=== PATIENT | female | born 1985 | race Caucasian/White ===

== ENCOUNTER 2018-10-04 07:49 | Day surgery (SDC) | payer BC ==
[2018-10-04 08:29] VITALS: BMI 45.1
[2018-10-04] MEDS ORDERED: Promethazine HCl 25 MG/ML VIAL IM PRN (08:30)
[2018-10-04] MEDS ORDERED: Ondansetron PF 4 MG/2 ML Vial IVP PRN (08:30)
[2018-10-04] MEDS ORDERED: Terbutaline Sulfate 1 MG/ML VIAL SC SCH (08:30)
[2018-10-04 08:52] LABS: Mean Corpuscular HGB CONC 32.8 g/dL (32.0-36.0); Mean Corpuscular Hemoglobin 26.4 pg (27.0-31.0); Mean Corpuscular Volume 80.5 fL (78.0-98.0); Mean Platelet Volume 7.7 fL (7.4-10.4); Platelet Count 315 thou/uL (130-400); RBC Distribution Width 13.4 % (11.5-14.5); Red Blood Cell (RBC) Count 4.17 mill/uL (4.20-5.40); White Blood Cell (WBC) Count 10.8 thou/uL (4.8-10.8)
[2018-10-04] MEDS ORDERED: Mineral Oil PER 1 ML TOP SCH (09:45)
--- NOTE | 2018-10-04 12:39 | PDOC.LDPN ---
Labor & Delivery Progress Note - Subjective Subjective: comfortable -: sono confirms cephalic presentation. pt dc home. fu in 3 days in office
--- NOTE | 2018-10-04 13:48 | HP ---
REASON FOR ADMISSION: A 37 weeks gestation, presentation for external cephalic version. HISTORY OF PRESENT ILLNESS: Ms. Rodriguez is a 33-year-old, 3, para 1, AB 1, with an EDC of 10/22 who is at 37 weeks. She has a previous section for failed induction and desires a TOLAC. 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 in 2011, blood type B positive, antibody negative, Pap negative, rubella immune, VDRL nonreactive, hepatitis B, GC, chlamydia negative, 50-gram within normal limits. Normal nuchal translucency. Normal sequential screen. Group B strep pending. MEDICAL HISTORY: None. SURGICAL HISTORY: None. ALLERGIES: DENIES. MEDICATIONS: vitamins. SOCIAL HISTORY: Denies tobacco, alcohol, or drug use. FAMILY HISTORY: Noncontributory. REVIEW OF SYSTEMS: Noncontributory. PHYSICAL EXAMINATION: GENERAL: White female, in no acute distress. VITAL SIGNS: Approximately 250 pounds, blood pressure 136/82. HEENT: Within normal limits. LUNGS: Clear to auscultation bilaterally. HEART: Regular rate and rhythm. BREASTS: No masses bilaterally. ABDOMEN: Soft, nontender. : Fundal height 37 cm. FHT is 130s. Vulva without lesions. Vagina without discharge. Cervix, closed, long, and high. EXTREMITIES: No clubbing, cyanosis, or edema. IMAGING STUDIES: Ultrasound in the office last week revealed a back-down transverse lie with the head in the maternal left and in the maternal right with a posterior placenta and adequate fluid. IMPRESSION: Breech presentation, desiring external cephalic version for trial of labor after . PLAN: Confirmation of position. Terbutaline and attempted external cephalic version with monitoring. Job ID: [id number]
== END 2018-10-04 12:52 | disposition home or self-care (01) ==
LOC: L&D/OP 07:49
PROVIDERS: ATTEND Obstetrics & Gynecology
DX: O32.1XX0 Maternal care for breech presentation, not applicable or unspecified (principal); Z3A.37 37 weeks gestation of pregnancy
CPT/HCPCS: 36415; 76815; 85027; 86850; 86900; 86901; 96360; 96361; 99283; J3105

== ENCOUNTER 2018-10-13 10:01 | Inpatient (IN) | payer BC ==
[2018-10-13] MEDS ORDERED: Lactated Ringer's 1,000 ML IV SCH ×2 (10:44→14:42)
[2018-10-13] MEDS ORDERED: Ondansetron PF 4 MG/2 ML Vial IVP PRN ×3 (10:44→14:42)
[2018-10-13] MEDS ORDERED: Promethazine HCl 25 MG/ML VIAL IM PRN ×3 (10:44→14:42)
[2018-10-13] MEDS ORDERED: CEFAZOLIN/Water 2 GM/20 ML SYRINGE SLOW IVP SCH (10:44)
[2018-10-13] MEDS ORDERED: Bicitra 30 ML UDCUP PO SCH (10:44)
[2018-10-13 10:55] VITALS: BMI 26.2
[2018-10-13] MEDS ORDERED: Morphine PF 1 MG/ML SYR ONE (10:59)
[2018-10-13] MEDS ORDERED: Bupivacaine 0.75% W/DEXTROSE 8.25% 2 ML AMP ONE (11:00)
[2018-10-13] MEDS ORDERED: Ondansetron PF 4 MG/2 ML Vial ONE (11:00)
[2018-10-13] MEDS ORDERED: PHENYLEPHRINE-NS 100 MCG/ML 10 ML SYRINGE ONE (11:00)
[2018-10-13] MEDS ORDERED: Ketorolac Tromethamine 30 MG/ML VIAL ONE (11:00)
[2018-10-13] MEDS ORDERED: Oxytocin 10 UNITS/ML VIAL ONE (11:00)
[2018-10-13] MEDS ORDERED: ePHEDrine/0.9% NaCl/PF SYRINGE 50 mg/10 ml ONE (11:00)
[2018-10-13] MEDS ORDERED: Lidocaine 1% PF 5 ML VIAL ONE (11:00)
[2018-10-13] MEDS: Lactated Ringer's 1,000 ML IV SCH (11:05)
[2018-10-13 11:07] LABS: Hemoglobin 10.8 g/dL (12.0-16.0); Mean Corpuscular HGB CONC 32.7 g/dL (32.0-36.0); Mean Corpuscular Hemoglobin 26.5 pg (27.0-31.0); Mean Corpuscular Volume 81.1 fL (78.0-98.0); Mean Platelet Volume 7.8 fL (7.4-10.4); Platelet Count 304 thou/uL (130-400); RBC Distribution Width 13.8 % (11.5-14.5); Red Blood Cell (RBC) Count 4.08 mill/uL (4.20-5.40); White Blood Cell (WBC) Count 11.8 thou/uL (4.8-10.8)
[2018-10-13] MEDS ORDERED: NS / Oxytocin 40 units/1000ml 1,000 ML ONE (11:11)
[2018-10-13] MEDS ORDERED: CEFAZOLIN 2 GM/50 ML-DEXTROSE 2 GM in Premix Bag 1 BAG IVPB SCH (11:15)
[2018-10-13 11:48] LABS: HBSAg Index 0.23 S/CO (0-0.99); Hep B Surf Ag Non-Reactive S/CO (NonReactive); Syphilis Antibody Nonreactive (Nonreactive); Syphilis Antibody Index 0.03 S/CO (<1.00 Non-Reactive)
[2018-10-13] MEDS ORDERED: diphenhydrAMINE 50 MG/ML VIAL ONE (12:08)
[2018-10-13] MEDS ORDERED: Ketorolac Tromethamine 30 MG/ML VIAL IVP PRN ×2 (12:10→19:46)
[2018-10-13] MEDS ORDERED: Eucerin (Mineral Oil/Petrolatum,White) 30 gm Jar TOP PRN (12:10)
[2018-10-13] MEDS ORDERED: HYDROmorphone 2 MG/ML VIAL SLOW IVP PRN (12:10)
[2018-10-13] MEDS ORDERED: Naloxone HCl 0.4 mg/ml Vial IV PRN (12:10)
[2018-10-13] MEDS ORDERED: diphenhydrAMINE 50 MG/ML VIAL IVP PRN (12:10)
[2018-10-13] MEDS ORDERED: L&D-Morphine 4 MG/ML VIAL SLOW IVP PRN (12:10)
[2018-10-13] MEDS ORDERED: Naloxone HCl 0.4 mg/ml Vial IVP PRN ×2 (12:10)
[2018-10-13] MEDS ORDERED: Ondansetron HCl/PF 4 MG/2 ML Vial IVP PRN (12:10)
[2018-10-13] MEDS ORDERED: Meperidine HCl/PF 25 MG/ML VIAL SLOW IVP PRN (12:10)
[2018-10-13] MEDS ORDERED: Promethazine HCl 25 MG SUPP PR PRN (12:10)
[2018-10-13] MEDS ORDERED: Ketorolac Tromethamine 30 MG/ML VIAL IVP SCH (12:15)
[2018-10-13] MEDS ORDERED: Communication Order-Pharmacy FS SCH (12:15)
[2018-10-13] MEDS ORDERED: Ibuprofen 800 MG TAB PO SCH (14:42)
[2018-10-13] MEDS ORDERED: diphenhydrAMINE 25 MG CAP PO PRN (14:42)
[2018-10-13] MEDS ORDERED: Lanolin Ointment 7 GM TUBE TOP PRN (14:42)
[2018-10-13] MEDS ORDERED: Acetaminophen 325 MG TAB PO PRN (14:42)
[2018-10-13] MEDS ORDERED: Adacel (T-DAP) 0.5 ML SYRINGE IM ONE (14:42)
[2018-10-13] MEDS ORDERED: NS / Oxytocin 40 units/1000ml 1,000 ML IV SCH (14:42)
--- NOTE | 2018-10-13 18:26 | OP ---
DATE OF PROCEDURE: 10/13/2018 PREOPERATIVE DIAGNOSES: Prior section x1 at 38-1/2 weeks' gestation with gestational hypertension, unstable lie. POSTOPERATIVE DIAGNOSES: Prior section x1 at 38-1/2 weeks' gestation with gestational hypertension, unstable lie plus wellington breech presentation. PROCEDURE PERFORMED: Repeat low-transverse section without extension. TRUCK CAR AND BUS CLEANER: Ralph Scott MD for [facility] obstetric hospitalists. ANESTHESIA: Subarachnoid block by Shyanne Shook CRNA. ESTIMATED BLOOD LOSS: Less than 1000 mL. QBL: Pending. MEDICATIONS: 2 g Ancef. PREINCISION: DVT prophylaxis with SCDs. OPERATIVE FINDINGS: 1. Vigorous female infant, wellington breech presentation, clear fluid. Apgars and weight pending to nursery. 2. Normal-appearing uterus, tubes, and ovaries bilaterally. 3. Hemostasis, clear urine. COUNTS: Correct at the end of the procedure. DISPOSITION: Recovery room in good condition. DESCRIPTION OF PROCEDURE: After obtaining appropriate operative consent, the patient was taken to the operating room, where subarachnoid block achieved without difficulty. The patient was prepped and draped in usual manner. Previous Pfannenstiel incision was incised sharply, carried down to the fascia in the midline, extended superiorly and laterally with curved Cook scissors. Rectus was dissected off the fascia superiorly and inferiorly. Rectus was divided in the midline, and peritoneum was entered bluntly. Extensive adhesions of the uterus to the anterior abdominal wall at the level of the rectus were noted. These were taken down in both blunt and sharp dissection. The Madhu O retractor was placed inside the vesicouterine peritoneum, incised sharply, and dissected off the lower uterine segment. Hysterotomy was made approximately 1 cm above this level and extended superiorly and laterally with finger fractionization. The 's breech was noted to be the presenting part and was elevated with hysterotomy. The rest of the infant was delivered in the usual manner, maintaining flexion of the head. Cord was clamped and cut, and handed off to the team in attendance. Usual cord blood sample was obtained. Placenta was removed manually. Uterus was left inside. Hysterotomy was noted to be without extension and closed using a running locking #1 Monocryl suture in a single layer. Good hemostasis was noted after closure. Area approximately 5 to 6 square centimeter of deserosalized uterus where it had been adhered to the anterior abdominal wall, was noted 2 cm above the level of the hysterotomy. Because of its thin vascular nature, decision was made to treat with FloSeal. FloSeal was applied and held pressure with a moist sponge for 3 minutes. Good hemostasis was noted after this was done. The Madhu O retractor was removed. Gutters were irrigated out bilaterally, and reinspection hysterotomy revealed it to be dry. Rectus was reapproximated using 0 Monocryl suture. Subcutaneous tissue was irrigated and rendered hemostatic with Bovie cautery. Fascia was reapproximated using running continuous 0 PDS suture x2. Subcutaneous tissue was irrigated using a 2-0 plain gut. Skin was reapproximated using a 4-0 Monocryl and Dermabond. The patient was taken to recovery room in good condition. MILO pending. Job ID: [id number]
[2018-10-13] MEDS: Docusate Calcium (SURFAK) 240 MG CAP PO SCH (23:52)
[2018-10-14] MEDS ORDERED: Meperidine HCl/PF 25 MG/ML VIAL IM PRN (00:15)
[2018-10-14] MEDS ORDERED: Zolpidem Tartrate 5 MG TAB PO PRN (00:15)
[2018-10-14] MEDS: Lactated Ringer's 1,000 ML IV SCH ×4 (02:30→18:18)
[2018-10-14 06:28] LABS: Hemoglobin 8.7 g/dL (12.0-16.0); Mean Corpuscular HGB CONC 32.5 g/dL (32.0-36.0); Mean Corpuscular Hemoglobin 26.5 pg (27.0-31.0); Mean Corpuscular Volume 81.6 fL (78.0-98.0); Mean Platelet Volume 7.7 fL (7.4-10.4); Platelet Count 243 thou/uL (130-400); RBC Distribution Width 13.7 % (11.5-14.5); Red Blood Cell (RBC) Count 3.29 mill/uL (4.20-5.40); White Blood Cell (WBC) Count 12.9 thou/uL (4.8-10.8)
--- NOTE | 2018-10-14 08:38 | PDOC.PP ---
Post Progress Note Post Day #: 1 PO intake tolerated: yes Flatus: yes Ambulation: yes Vital Signs (12 hours) Temp Pulse Resp BP Pulse Ox 10/14/18 08:18 98.0 F 113 H 20 129/80 95 10/14/18 04:45 98.2 F 107 H 20 120/77 10/14/18 00:05 97.7 F 104 H 18 127/76 10/13/18 22:15 20 Weight Weight 153 lb - Physical Examination General: NAD ( pulse at rest 90) Cardiovascular: no m/r/g, RRR Respiratory: clear to auscultation bilaterally, non-labored breathing Abdominal: + bowel sounds, lochia, no distention, appropriately TTP Skin: CS incision dry & intact, no rash Neurological: no gross focal deficits Psychiatric: normal affect Result Diagrams: 10/14/18 06:15 Additional Labs: Post Labs Blood Type B POSITIVE 10/13/18 10:55 Hep Bs Antigen Non-Reactive S/CO (NonReactive) 10/13/18 10:55 (1) Breech presentation at Code(s): O32.1XX0 - MATERNAL CARE FOR BREECH PRESENTATION, UNSP Status: Acute - Assessment/Plan benign exam. qbl ~850. routine care. rx sent electronically from [facility]. check out care to ob hospitalist for remainder of admission.
[2018-10-14] MEDS: Prenatal Vitamin 1 TAB PO SCH (09:29)
[2018-10-14] MEDS: HYDROcodone/Acetaminophen 5/325 mg Tablet PO PRN ×2 (09:29→21:10)
[2018-10-14] MEDS: Famotidine 20 MG TAB PO SCH ×2 (09:30→21:09)
[2018-10-14] MEDS: Simethicone Chewable 80 MG TAB PO PRN (09:30)
[2018-10-14] MEDS: Docusate Calcium (SURFAK) 240 MG CAP PO SCH ×2 (09:30→21:09)
[2018-10-14] MEDS: Ibuprofen 800 MG TAB PO SCH ×2 (14:28→21:09)
[2018-10-15] MEDS: Ibuprofen 800 MG TAB PO SCH ×3 (05:21→21:12)
[2018-10-15] MEDS: Lactated Ringer's 1,000 ML IV SCH ×2 (06:03→13:10)
--- NOTE | 2018-10-15 08:01 | PRG ---
DATE OF SERVICE: 10/15/2018 SUBJECTIVE: The patient is postop day 2, status post a repeat for breech and gestational hypertension. The patient reports today that she is tolerating p.o., voiding on her own, having decreased lochia, and good pain control. OBJECTIVE: VITAL SIGNS: Most recent vital signs; temperature 98.7, pulse of 105, respiratory rate of 20, and blood pressure of 120/64. GENERAL: She appears to be in no acute distress. She is alert and oriented, cooperative and pleasant to interact with. HEENT: Head is normocephalic, atraumatic. ABDOMEN: Fundus is firm. Incision is clean, dry, and intact with Dermabond. EXTREMITIES: Nontender, nonedematous. ASSESSMENT AND PLAN: The patient is postop day 2, status post a repeat section for breech presentation and gestational hypertension. The patient's blood pressures have remained in the normal range. We will anticipate discharge tomorrow as baby has elevated bilirubin and maybe under lytes today, and we will continue postoperative care of Ms. Jumana Rodriguez. Job ID: [id number]
[2018-10-15] MEDS: Simethicone Chewable 80 MG TAB PO PRN (08:19)
[2018-10-15] MEDS: Docusate Calcium (SURFAK) 240 MG CAP PO SCH ×2 (08:19→21:12)
[2018-10-15] MEDS: Prenatal Vitamin 1 TAB PO SCH (08:19)
[2018-10-15] MEDS: HYDROcodone/Acetaminophen 5/325 mg Tablet PO PRN ×4 (08:19→22:16)
[2018-10-15] MEDS: Famotidine 20 MG TAB PO SCH ×2 (08:19→21:12)
--- NOTE | 2018-10-15 21:31 | PDOC.PP ---
Post Progress Note Post Day #: 2 Subjective: Doing well PO intake tolerated: yes Flatus: yes Ambulation: yes Vital Signs (12 hours) Temp Pulse Resp BP BP Pulse Ox 10/15/18 20:30 98.1 F 110 H 20 130/80 97 10/15/18 11:48 98.0 F 110 H 20 132/83 Weight Weight 153 lb BPs reviewed for last 24 hrs and no temperature elevation - Physical Examination General: NAD Cardiovascular: no m/r/g Respiratory: clear to auscultation bilaterally Abdominal: + bowel sounds, appropriately TTP Extremities: negative homans (B) Skin: CS incision dry & intact (incision sutured), no rash Neurological: no gross focal deficits Psychiatric: A&Ox3, normal affect Result Diagrams: 10/14/18 06:15 Additional Labs: Post Labs Blood Type B POSITIVE 10/13/18 10:55 Hep Bs Antigen Non-Reactive S/CO (NonReactive) 10/13/18 10:55 (1) delivery delivered Code(s): O82 - ENCOUNTER FOR DELIVERY WITHOUT INDICATION Status: Acute (2) Breech presentation at Code(s): O32.1XX0 - MATERNAL CARE FOR BREECH PRESENTATION, UNSP Status: Acute - Assessment/Plan POD2 from repeat CS, breech and GHTN. Doing well. Anticpiate dc to home 10/16 which is POD3. Recommend BP check and wound check in 1-2 weeks at [facility]
[2018-10-16] MEDS: HYDROcodone/Acetaminophen 5/325 mg Tablet PO PRN ×3 (03:08→11:43)
[2018-10-16] MEDS: Lactated Ringer's 1,000 ML IV SCH ×2 (05:11→09:13)
--- NOTE | 2018-10-16 05:29 | PDOC.PP ---
Post Progress Note Post Day #: 3; Discharge Note Subjective: Doing well PO intake tolerated: yes Flatus: yes Ambulation: yes Vital Signs (12 hours) Temp Pulse Resp BP BP Pulse Ox 10/16/18 00:00 97.7 F 107 H 20 123/68 10/15/18 20:30 98.1 F 110 H 20 130/80 97 Weight Weight 153 lb - Physical Examination General: NAD Cardiovascular: no m/r/g Respiratory: clear to auscultation bilaterally Abdominal: + bowel sounds, lochia Extremities: negative homans (B) Skin: CS incision dry & intact (Sutured incision) Neurological: no gross focal deficits Psychiatric: A&Ox3, normal affect Result Diagrams: 10/14/18 06:15 Additional Labs: Post Labs Blood Type B POSITIVE 10/13/18 10:55 Hep Bs Antigen Non-Reactive S/CO (NonReactive) 10/13/18 10:55 (1) delivery delivered Code(s): O82 - ENCOUNTER FOR DELIVERY WITHOUT INDICATION Status: Acute (2) Breech presentation at Code(s): O32.1XX0 - MATERNAL CARE FOR BREECH PRESENTATION, UNSP Status: Acute - Assessment/Plan POD 3 from breech repeat CS...ok for discharge home today. Recomend BP check ( BPs normal now) in 1-2 weeks with wound check for HX GHTN. Final DX: Breech presentation Repeat section Gestational Hypertension
[2018-10-16] MEDS: Ibuprofen 800 MG TAB PO SCH (06:26)
[2018-10-16] MEDS: Prenatal Vitamin 1 TAB PO SCH (09:12)
[2018-10-16] MEDS: Famotidine 20 MG TAB PO SCH (09:12)
[2018-10-16] MEDS: Docusate Calcium (SURFAK) 240 MG CAP PO SCH (09:13)
[2018-10-16 09:36] VITALS: BP 131/65; TEMP 97.5
== END 2018-10-16 12:30 | disposition home or self-care (01) | DRG 788 ==
LOC: L&D 10:01 → 3SW 15:13
PROVIDERS: ADMIT Obstetrics & Gynecology; ATTEND Obstetrics & Gynecology
PROC: 10D00Z1 Extraction of Products of Conception, Low, Open Approach (ICD-10-PCS; principal; 2018-10-13)
DX: O34.211 Maternal care for low transverse scar from previous cesarean delivery (principal); Z3A.38 38 weeks gestation of pregnancy; Z37.0 Single live birth; O13.4 Gestational [pregnancy-induced] hypertension without significant proteinuria, complicating childbirth; O32.0XX0 Maternal care for unstable lie, not applicable or unspecified; O32.1XX0 Maternal care for breech presentation, not applicable or unspecified
CPT/HCPCS: 36415; 51702; 85027; 86780; 86850; 86900; 86901; 87340; 90715; J1200; J1885; J2001; J2274; J2405; J2590; J3490

== ENCOUNTER 2018-10-20 05:50 | Inpatient (IN) | payer BC ==
[2018-10-20 06:36] LABS: Hemoglobin 8.8 g/dL (12.0-16.0); Mean Corpuscular HGB CONC 30.8 g/dL (32.0-36.0); Mean Corpuscular Hemoglobin 24.8 pg (27.0-31.0); Mean Corpuscular Volume 80.6 fL (78.0-98.0); Mean Platelet Volume 5.8 fL (7.4-10.4); Platelet Count 359 thou/uL (130-400); RBC Distribution Width 13.4 % (11.5-14.5); Red Blood Cell (RBC) Count 3.56 mill/uL (4.20-5.40); White Blood Cell (WBC) Count 10.4 thou/uL (4.8-10.8)
[2018-10-20 06:38] LABS: AST (SGOT) 38 U/L (5-34); Chloride 106 mmol/L (98-107); Potassium 4.2 mmol/L (3.5-5.1); Protein, Total 6.7 g/dL (6.0-8.3); Sodium 139 mmol/L (136-145)
[2018-10-20 06:51] LABS: #Basophils 0.1 thou/uL (0.0-0.2); #Eosinphils 0.4 thou/uL (0.0-0.7); #Lymphocytes 1.4 thou/uL (1.20-3.40); #Monocytes 0.8 thou/uL (0.11-0.59); #Neutrophils 7.7 thou/uL (1.40-6.50); %Basophils 1.2 % (0.0-1.0); %Eosinophils 3.8 % (0.0-10.0); %Lymphocytes 13.4 % (21.0-51.0); %Monocytes 7.5 % (0.0-10.0); %Neutrophils 74.2 % (42.0-75.0); Hypochromia SLIGHT = 6-15 cells (100X) (0-5/hpf); MDiff Complete? YES
[2018-10-20 07:07] LABS: Bilirubin Negative (Negative); Blood, Urine Large (Negative); Clarity Slightly Cloudy (Clear); Glucose, Urine (Dipstick) Negative (Negative); Leukocyte Small (Negative); Nitrite Negative (Negative); Protein, Urine (Dipstick) Negative (Neg-Trace); Urobilinogen 0.2 mg/dL (0.2-1.0)
[2018-10-20 07:17] LABS: Bacteria/HPF Rare-Few HPF (None Seen); Hyaline Casts/LPF NONE SEEN LPF (0-3 Hyaline); Specific Gravity, Urine 1.013 (1.002-1.036); Squamous Epithelial 0-3 HPF (0-3); Transitional Epithelial 0-3 HPF (0-3); WBC/HPF 0-3 HPF (0-3)
[2018-10-20 07:19] LABS: ALT (SGPT) 57 U/L (8-55); Albumin 3.1 g/dL (3.5-5.0); Alkaline Phosphatase 87 U/L (40-150); BUN (Urea Nitrogen) 10 mg/dL (7.0-18.7); Bilirubin, Total 0.4 mg/dL (0.2-1.2); Calc. Creatinine Clearance 0 mL/min (70-130); Calcium 8.7 mg/dL (7.8-10.44); Carbon Dioxide 21 mmol/L (22-29); Estimated GFR-MDRD 90; Globulin 3.6 g/dL (2.4-3.5); Glucose 91 mg/dL (70-105); Lipase 33 U/L (8-78)
[2018-10-20 07:21] LABS: Anion Gap 16 mmol/L (10-20)
--- NOTE | 2018-10-20 08:13 | RAD ---
CHEST 2 VIEWS: Date: 10/20/18 HISTORY: Dyspnea. FINDINGS: No comparison. Cardiac silhouette is unremarkable. Shallow inspiration accentuates pulmonary markings. Mediastinum i s midline. Subtle patchy parenchymal opacities are present at each lung base. No evidence of pneumoth orax or pleural fluid. IMPRESSION: Mild patchy bilateral infiltrates at the lung bases. Clinical correlation regarding other signs and s ymptoms of bibasilar pneumonitis is required. CT arteriogram of the chest has been performed. Please see separate report. POS: [facility]
--- NOTE | 2018-10-20 08:58 | CT ---
PRELIMINARY REPORT/[facility]/EMERGENTY AFTER-HOURS PROCEDURE CT Angiography Chest With Contrast EXAM DATE/TIME: 10/20/2018 6:42 AM CLINICAL HISTORY: 33 years old, female; Signs and symptoms; Shortness of breath; Patient HX: PT had 12. PT woke w SOB at 2: 00 am TECHNIQUE: Axial computed tomographic angiography images of the chest with intravenous contrast using CT angiogr aphy protocol. All CT scans at this facility use at least one of these dose optimization techniques: automated exposure control; mA and/or kV adjustment per patient size (includes targeted exams where dose is mat ched to clinical indication); or iterative reconstruction. Coronal reformatted images were created an d reviewed. MIP reconstructed images were created and reviewed. CONTRAST: 100 ml of ISOVUE 379 administered intravenously. COMPARISON: No relevant prior studies available. FINDINGS: Pulmonary arteries: Bolus timing is insufficient for definitive exclusion of small peripheral pulmona ry emboli, however no obvious central filling defect is demonstrated. Aorta: The aorta is normal. There is no evidence of aortic dissection, leak, rupture, or other compli cations. Thyroid: The visualized thyroid gland is unremarkable. Lungs: There is subpleural atelectasis of the dependent portions of the lungs. There is mild opacific ation at the RIGHT lung base compatible with edema or pneumonia in the appropriate clinical setting. Pleural space: There are small bilateral pleural effusions. Heart: Normal. No cardiomegaly. No pericardial effusion. Mediastinum: The trachea is normal. Lymph nodes: Unremarkable. No enlarged lymph nodes. Bones/joints: Unremarkable. No acute fracture. Soft tissues: Unremarkable. IMPRESSION: 1. There are small bilateral pleural effusions. 2. There is mild opacification at the RIGHT lung base compatible with edema or pneumonia in the appro priate clinical setting. 3. There is no evidence of aortic dissection, leak, rupture, or other complications. Thank you for allowing us to participate in the care of your patient. Dictated and Authenticated by: Sam Laboy MD 10/20/2018 7:17 AM Central Time ([place] & [place]) CONTRAST ENHANCED CTA CHEST: HISTORY: Dyspnea. TECHNIQUE: A contrast enhanced CTA of the chest is performed, and 2D and 3D reconstructed images were performed on an independent 3D work station. FINDINGS: CTA chest demonstrates small bilateral pleural effusions. There are some areas of subtle air space opacity in the right lower lobe, compatible with some areas of right lower lobe pneumonia or edema. No evidence of filling defects seen in the pulmonary arteries to suggest pulmonary emboli. No other significant abnormalities seen. No evidence of aortic dissections or aneurysms seen. IMPRESSION: Small bilateral pleural effusions and possible right lower lobe pneumonia. POS: [facility]
[2018-10-20 09:31] VITALS: BMI 41.9
[2018-10-20 09:57] LABS: Troponin I 0.089 ng/mL (< 0.028)
[2018-10-20 12:02] LABS: Creatinine, Urine 33.36 mg/dL (47-110)
[2018-10-20] MEDS ORDERED: Enoxaparin Sodium 40 MG/0.4 ML SYRINGE SC SCH (12:30)
--- NOTE | 2018-10-20 12:32 | PDOC.FPRHP ---
- History of Present Illness Chief Complaint: SOB History of Present Illness: Mrs. Rodriguez is a 33 yo presenting with CC of SOB. POD #7 s/p RLTCS. Denies any complications. Reports yesterday she noticed rattling sound with breathing. Last night she was unable to lay down flat in bed d/t SOB. SOB w/ exertion and dry cough as well. Denies CP, fever, headache, abdominal pain, vision changes, swelling. Has been recovering well at home. Incision healing well. Breast feeding. - Allergies/Adverse Reactions Allergies Allergy/AdvReac Type Severity Reaction Status Date / Time No Known Allergies Allergy Verified 10/20/18 09:20 - Home Medications Medication Instructions Recorded Confirmed Type HYDROcodone Bit/APAP 5/325 [[place] 1 tab PO Q6HR PRN 10/20/18 10/20/18 History 5/325] Ibuprofen 800 mg PO TID PRN 10/20/18 10/20/18 History - History PMHx: none PSHx: 2 c-sections, ankle surgery FHx: mom-SLE, RA, degenerative arthritis. Father-thyroid problem Social: Lives with and two children. Denies tobacco, alcohol, drug use. - Review of Systems General: denies: fever/chills Eyes: denies: vision changes ENT: denies: nasal congestion Respiratory: reports: cough, shortness of breath (with exertion. orthopnea.) Cardiovascular: reports: orthopnea. denies: chest pain, palpitation, edema Gastrointestinal: denies: nausea, vomiting, diarrhea, constipation, abdominal pain Genitourinary: denies: dysuria Skin: denies: rashes Musculoskeletal: denies: pain, tenderness - Vital signs BP: 146/82 HR: 103 RR: 18 Tmax: 98.7 Pox: 94% on RA Wt: 110 kg - Physical Exam Constitutional: NAD, awake, alert and oriented Neck: no LAD Heart: RRR, normal S1/S2 Lungs: no respiratory distress, good air movement, other (mild crackles LLL base ) Abdomen: soft, bowel sounds present Neurological: no focal deficit Skin: no rash/lesions, good turgor, capillary refill <2 seconds FMR H&P: Results - Labs Result Diagrams: 10/20/18 06:15 10/20/18 06:15 Lab results: WBC 10.4 thou/uL (4.8-10.8) 10/20/18 06:15 Hgb 8.8 g/dL (12.0-16.0) L 10/20/18 06:15 Hct 28.7 % (36.0-47.0) L 10/20/18 06:15 MCV 80.6 fL (78.0-98.0) 10/20/18 06:15 Plt Count 359 thou/uL (130-400) 10/20/18 06:15 Neutrophils % 74.2 % (42.0-75.0) 10/20/18 06:15 Sodium 139 mmol/L (136-145) 10/20/18 06:15 Potassium 4.2 mmol/L (3.5-5.1) 10/20/18 06:15 Chloride 106 mmol/L (98-107) 10/20/18 06:15 Carbon Dioxide 21 mmol/L (22-29) L 10/20/18 06:15 BUN 10 mg/dL (7.0-18.7) 10/20/18 06:15 Creatinine 0.74 mg/dL (0.6-1.1) 10/20/18 06:15 Glucose 91 mg/dL (70-105) 10/20/18 06:15 Calcium 8.7 mg/dL (7.8-10.44) 10/20/18 06:15 Total Bilirubin 0.4 mg/dL (0.2-1.2) 10/20/18 06:15 AST 38 U/L (5-34) H 10/20/18 06:15 ALT 57 U/L (8-55) H 10/20/18 06:15 Alkaline Phosphatase 87 U/L (40-150) 10/20/18 06:15 CK-MB (CK-2) 1.0 ng/mL (0-6.6) 10/20/18 06:15 B-Natriuretic Peptide 419.0 pg/mL (0-100) H 10/20/18 06:15 Serum Total Protein 6.7 g/dL (6.0-8.3) 10/20/18 06:15 Albumin 3.1 g/dL (3.5-5.0) L 10/20/18 06:15 Lipase 33 U/L (8-78) 10/20/18 06:15 Urine Ketones Negative mg/dL (Negative) 10/20/18 06:54 Urine Blood Large (Negative) H 10/20/18 06:54 Urine Nitrite Negative (Negative) 10/20/18 06:54 Ur Leukocyte Esterase Small (Negative) H 10/20/18 06:54 Urine RBC 7-10 HPF (0-3) H 10/20/18 06:54 Urine WBC 0-3 HPF (0-3) 10/20/18 06:54 Ur Squamous Epith Cells 0-3 HPF (0-3) 10/20/18 06:54 Urine Bacteria Rare-Few HPF (None Seen) 10/20/18 06:54 FMR H&P: A/P - Problem List (1) Peripartum cardiomyopathy, Current Visit: Yes Status: Acute Code(s): O90.3 - PERIPARTUM CARDIOMYOPATHY (2) HTN (hypertension) Current Visit: Yes Status: Acute Code(s): I10 - ESSENTIAL (PRIMARY) HYPERTENSION (3) Proteinuria Current Visit: Yes Status: Acute Code(s): R80.9 - PROTEINURIA, UNSPECIFIED - Plan 33 yo POD #7 s/p RLTCS presenting with orthopnea. Possible PP cardiomyopathy - CXR showed patchy infiltrate @ lung bases - CTA showed small b/l pleural effusion. R lung base opacification - VSS, BNP 419, EKG sinus tachycardia - indeterminate troponins, continue to trend - pending echo - will trial one dose lasix 20mg IV, monitor I/Os - consult cardiology Workup for pre-E - concern for elevated BPs, 150s systolic noted in ED. Last check 140/80s, will continue to monitor - no headache, vision changes, abdominal pain, LFTs minimally elevated, Cr 0.74 , platelets normal - noted to have high BPs day before and of delivery. No other hx of HTN. - U prot/cr ratio 1 Diet: Regular Ppx: Lovenox Dispo: admit to telemetry FMR H&P: Upper Level - Pertinent history Pt is a 33 year old 1 week s/p repeat who presents with a one day history of orthopnea. She reports no complications with her or delivery. She does report elevated pressures at her last visit. She does report cough x 1 day. Denies fevers, chest pain, abdominal pain, vision changes, headache. Lochia minimal. Denies pain. ED course: She received 1 L NS in the ED. CXR shows mild patchy bilateral infiltrates at the lung bases. CTA was negative for PE, but showed small bilateral pleural effusions. - Pertinent findings Vitals: BP: 146/82 P: 103 SpO2: 94% on RA RR: 18 Physical Exam: General: alert and oriented, in no distress Heart: RRR, no MRG Lungs: clear to auscultation bilaterally, no crackles, wheezes, or rhonchi. No use of accessory muscles of respiration Abdomen: soft, non-tender; well-healing pfannenstiel incision Extremities: trace edema Neuro: CN II-XII intact grossly; no focal deficits; no clonus, Achilles reflexes wnl. Labs/Imaging BNP- 409 AST: 38 ALT: 57 Troponin: 0.07, 0.089 CXR/CTA - bibasilar infiltrates; negative for PE. EKG: sinus tachycardia Assessment and Plan 33 yo 1 week s/p repeat LTCS with one day history of orthopnea and direct admitted due to concern for peripartum cardiomyopathy. Peripartum cardiomyopathy rule out - pt is hemodynamically stable. - troponins indeterminately elevated. - no evidence of respiratory distress; supplemental oxygen available if needed. - - will consider trial of Lasix. - will obtain echocardiogram to determine EF% - cardiology has been consulted. pre-e rule out - pt is currently asymptomatic. - will continue to monitor BPs. - urine protein:cr pending. PPx: Lovenox - Plan Date/Time: 10/20/18 1232 IJumana, have evaluated this patient and agree with findings/plan as outlined by regulatory affairs intern resident. Pertinent changes/additions are listed here. Assessment and Plan 33 yo 1 week s/p repeat LTCS with one day history of orthopnea and direct admitted due to concern for peripartum cardiomyopathy. Peripartum cardiomyopathy rule out - pt is hemodynamically stable. - troponins indeterminately elevated. - no evidence of respiratory distress; supplemental oxygen available if needed. - will obtain echocardiogram to determine EF% - cardiology has been consulted. pre-e rule out - with multiple elevated BPs in the ED, we will need to rule out post-martum pre -eclampsia as a cause for her symptoms. - pt is currently asymptomatic. LFTs only minimally elevated. - will continue to monitor BPs. - urine protein:cr pending. Addendum - Attending - Attending Attestation Date/Time: 10/20/18 1248 I personally evaluated the patient and discussed the management with Dr. Mckeon. I agree with and repeated the History, Examination, Assessment and Plan documented above with any addition or exceptions noted below. Patient well appearing; no acute distress. No JVD. RRR, no murmur; S4. 1+ BLE edema. Neg CTA for PE although suboptimal contrast timing. Findings as above. Patient clinically with peripartum cardiomyopathy. TTE ordered and results pending. Cardiology has been consulted. I believe LFTs are 2/2 hepatic congestion as opposed to preeclampsia with severe features (no symptoms, no 2x ULN). Her BP are mild range, but her prot/creat is elevated. I discussed pulmonary edema as a possible qualifier for magnesium and we discuss with Ob hospitalist, Dr. Noble, who favored not starting magnesium. I agree, as I feel her clinical picture is much more consistent with PPCM and I feel the additional fluids associated with mag infusion could worse her volume status as opposed to improving it. Pending TTE results will likely start HF meds. I would go ahead and sodium and fluid restrict the patient. If severe symptoms or pressures will manage as appropriate. We notified Dr. Gomes of his patient and will keep him updated at his request. DVT ppx with lovenox.
[2018-10-20 12:45] LABS: Troponin I 0.083 ng/mL (< 0.028)
[2018-10-20] MEDS ORDERED: Furosemide 20 MG/2 ML VIAL SLOW IVP SCH (12:45)
[2018-10-20] MEDS ORDERED: HYDROcodone/Acetaminophen 5/325 mg Tablet PO PRN (15:13)
[2018-10-20] MEDS ORDERED: Iopamidol 370 76% 100 ML VIAL ONE (16:27)
[2018-10-20] MEDS ORDERED: Acetaminophen 325 MG TAB PO SCH (17:15)
[2018-10-20] MEDS ORDERED: Calcium Gluc 4.6 MEQ/10 ML (100 MG/ML) SLOW IVP PRN (19:29)
[2018-10-20] MEDS ORDERED: Magnesium Sulfate 20 gm/500 ml 20 GM/500 ML BAG IVPB SCH (19:30)
[2018-10-20] MEDS ORDERED: Magnesium Sulfate 20 GM/WATER 500 ML BAG IVPB SCH (19:30)
--- NOTE | 2018-10-20 19:35 | PDOC.EVN ---
Event Note - Event Note Event Note: 33 yr old now POD #7 s/p rLTCS with hx of gestational HTN being evaluated for concern of PP cardiomyopathy. Patient reports headache, left sided and pounding. Reports present since approx 1400, unresponsive to norco. She does note having a headache at home a few days prior that were not responsive to ibuprofen. Denies current abdominal pain or vision changes. BP: 153/101 Repeat BP 149/72 Gen: patient somewhat tearful after discussion of condition, alert and oriented Heart: slightly tachy, reg rhythm Lungs: CTAB, no crackles, wheezes, rhonchi 33 yr old pod #7 s/p rLTCS Post cardiomyopathy -EF 35% -await cardiology recs -will need to be started on HF meds prior to D/C Pre-eclampsia with severe features -originally signs/symptoms thought to be 2/2 cardiomyopathy, however given new onset headache not responsive to tylenol/opiate (now qualifying as severe feature), will opt to initiate magnesium -other associated signs/symptoms: elevated AST/ALT, elevated protein/creatinine ratio at 1, elevated BP (not quite severe range), pulmonary edema on CTA -monitor strict I/Os -given no severe range BP's, will hold on initiating BP meds (unless started by cardiology) -will opt to hold on B-breezy at this time -initiate mag checks -if headache not improved, may consider reglan/benadryl -given she will need cardiac monitoring and mag drip, will transfer to CCU (no drip in IMCU). Addendum - Attending - Attending Attestation Date/Time: 10/20/182038 I personally evaluated the patient and discussed the management with Dr. Fulton. I agree with the History, Examination, Assessment and Plan documented above with any addition or exceptions noted below.
[2018-10-20] MEDS ORDERED: Labetalol HCl 100 MG/20 ML VIAL SLOW IVP PRN (21:11)
--- NOTE | 2018-10-20 22:17 | CON ---
DATE OF CONSULTATION: 10/20/2018 HISTORY OF PRESENT ILLNESS: Jumana Rodriguez is a 33-year-old white female without previous cardiac or respiratory problems. She just underwent her second C- section on October 13. She states that afterward she did notice some pedal edema that seemed to resolve. She did well until yesterday when she began noticing some wheezing whenever she would walk around the house. Last night, she then had episodes of PND and orthopnea and had to sleep in a chair. She seemed to be short of breath today, went to the [place] [facility] and then was transferred here for further evaluation. She did receive what looks like a liter of fluid in the emergency room. Chest x-ray did show bilateral pleural effusions. She denies any chest discomfort. PAST MEDICAL HISTORY: She denies any history of hypertension, diabetes, or hypercholesterolemia. MEDICATIONS: 1. Ibuprofen 800 mg t.i.d. p.r.n. 2. Hydrocodone p.r.n. ALLERGIES: NONE. OPERATIONS: Two C-sections. SOCIAL HISTORY: She does not smoke. She rarely has a Molly. FAMILY HISTORY: Mother apparently had myocardial infarction. REVIEW OF SYSTEMS: A 10-point review of systems is otherwise unremarkable. PHYSICAL EXAMINATION: VITAL SIGNS: Blood pressure 151/103, pulse of 119. HEENT: PERRL. NECK: Supple. CHEST: Reveals decreased breath sounds at the bases. No wheezing. CARDIOVASCULAR: S1 and S2 normal without any S3, S4, or murmurs. ABDOMEN: Obese. Normal bowel sounds. No tenderness. EXTREMITIES: Revealed trace pretibial edema. NEUROLOGICAL: Grossly intact. SKIN: Warm and dry. LABORATORY DATA: EKG revealed sinus tachycardia with rate of 112 per minute, possible left atrial enlargement. Poor R-wave progression. Echocardiogram revealed mild left ventricular enlargement, moderate left ventricular dysfunction with ejection fraction of 30% to 35%, mild left atrial enlargement, moderate mitral regurgitation, and mild tricuspid regurgitation. Chest x-ray revealed mild patchy infiltrates at the lung bases. Chest CT angiogram revealed small bilateral pleural effusions, opacification of the right lung base consistent with edema or pneumonia. No evidence of aortic dissection. The test was poorly timed for definite exclusion of small peripheral pulmonary emboli, however, there was no central filling defect demonstrated. Hemoglobin 8.8, hematocrit 28.7, white count 10,400, platelets 359,000. D-dimer 5.23. Sodium 139, potassium 4.2, chloride 106, carbon dioxide 21, BUN 10, creatinine 0.74, AST 38, ALT 57, troponin I 0.089, BNP 419.0. IMPRESSION: 1. cardiomyopathy with ejection fraction of 30% to 35%. 2. Positive family history. 3. Elevated liver function test, probably due to hepatic congestion. PLAN: The patient will be diuresed. She will be started on carvedilol, probably will add an IVONNE inhibitor in 1 to 2 days. With her ejection fraction of 30% to 35%, consideration should be given to LifeVest at the time of discharge. The situation was discussed with the patient and her . Job ID: [id number] [facility]
--- NOTE | 2018-10-21 00:36 | PDOC.EVN ---
Event Note - Event Note Event Note: Mag check: Headache improving, Urine output 270ml and 325ml in the last 2 hours DTR 2/, BP 155/113 Continue 2g Mag/hr, continue monitoring for magnesium toxicity, start coreg, PRN labetalol for elevated BP
[2018-10-21] MEDS ORDERED: Carvedilol 3.125 MG TAB PO SCH (00:45)
[2018-10-21] MEDS: Benzonatate 100 MG CAP PO PRN ×2 (01:31→05:29)
--- NOTE | 2018-10-21 05:30 | PDOC.EVN ---
Event Note - Event Note Event Note: Mag check: Headache improving, cough improving after tessalon, Urine output adequate, 175 in last hour DTR 2/4 in all 4 extremities, BP 144/93, crackles in LLL, no respiratory distress Continue 2g Mag/hr, continue monitoring for magnesium toxicity, PRN labetalol for elevated BP
--- NOTE | 2018-10-21 05:50 | PDOC.FM ---
- Subjective Subjective: Patient reports she is feeling better compared to yesterday. Denies current headache, vision changes, abdominal pain, edema. No SOB at rest. Is on bedrest. Continues to have orthopnea. Is understanding of her condition and the plan. - Objective MAR Reviewed: Yes Vital Signs & Weight: Vital Signs (12 hours) Temp Pulse Resp BP BP Pulse Ox 10/21/18 04:00 98.8 F 10/21/18 00:04 117 H 155/113 H 10/21/18 00:00 98.6 F 97 10/20/18 21:00 97 10/20/18 20:03 110 H 18 142/86 H 10/20/18 19:29 98.5 F 105 H 18 171/84 H 97 Weight Weight 110.903 kg Most Recent Monitor Data Heart Rate from ECG 110 NIBP 132/91 NIBP BP-Mean 104 Respiration from ECG 27 SpO2 98 I&O: 10/19/18 10/20/18 10/21/18 06:59 06:59 06:59 Intake Total 1668 Output Total 3255 Balance -1587 Result Diagrams: 10/20/18 06:15 10/20/18 06:15 Phys Exam - Physical Examination Constitutional: NAD Respiratory: clear to auscultation bilateral Cardiovascular: RRR, no significant murmur Gastrointestinal: soft, non-tender, positive bowel sounds Musculoskeletal: no edema Neurological: non-focal Psychiatric: normal affect Skin: normal turgor, cap refill <2 seconds Dx/Plan (1) Peripartum cardiomyopathy, Code(s): 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 PP cardiomyopathy - CXR showed patchy infiltrate @ lung bases - CTA showed small b/l pleural effusion. R lung base opacification, no PE - Echo showed EF 30-35% - Diuresing well with IV lasix 20mg. I/O balance of -1800. Could consider decreasing today. - Cardiology consulted, appreciate recommendations. Coreg started with plan to start IVONNE in 1-2 days. Possible life vest at discharge. - not encouraged. - Will consult HF team today Pre-eclampsia with severe features - noted to have high BPs day before and of delivery. No other hx of HTN. - U prot/cr ratio 1. - Patient had onset of headache yesterday evening, was started on magnesium @ 2145. Continue q4h magnesium checks. Plan to continue mag for 24 hours then discontinue. - BPs have been stable 130s/90s this am. On BP meds as above. Diet: Regular Ppx: Lovenox Dispo: pending clinical improvement Addendum - Attending - Attending Attestation Date/Time: 10/21/18 1313 I personally evaluated the patient and discussed the management with Dr. Mckeon and team. I agree with and repeated the History, Examination, Assessment and Plan documented above with any addition or exceptions noted below. Unfortunately developed additional symptoms of preE with severe features last night. Her headache is now resolved, however, and she feels much better from a respiratory standpoint. Will continue seizure precautions, mag checks, and stricts I&O's. Likely 24h mag. Await med recs with cards. Likely will be unable to BF. Continue diuresis.
[2018-10-21] MEDS: Carvedilol 3.125 MG TAB PO SCH ×2 (08:31→17:28)
[2018-10-21] MEDS: Enoxaparin Sodium 40 MG/0.4 ML SYRINGE SC SCH (08:32)
[2018-10-21] MEDS ORDERED: Furosemide 20 MG/2 ML VIAL SLOW IVP SCH (09:00)
[2018-10-21] MEDS ORDERED: Potassium Chloride 20 MEQ TAB PO SCH (10:15)
[2018-10-21] MEDS: Sacubitril 24.5 MG/Valsartan 25.5 MG TABLET PO SCH ×2 (10:28→20:50)
[2018-10-21] MEDS: Acetaminophen 325 MG TAB PO PRN ×2 (11:47→20:50)
--- NOTE | 2018-10-21 11:52 | CON ---
DATE OF CONSULTATION: 10/21/2018 SERVICE: Pulmonary Medicine. REASON FOR CONSULTATION: ICU patient. HISTORY OF PRESENT ILLNESS: The patient is a 33-year-old white female with past medical history significant for recent section. Two days after, she had her baby, she started having increasing progressive shortness of breath. She had orthopnea. Ultimately, she presented to the emergency department. She was discovered to have a peripartum cardiomyopathy. She is currently in the ICU on a magnesium drip, getting frequent reflex checks. She indicates that her breathing has dramatically improved. She denies any current fevers, chills, nausea, vomiting, or chest discomfort. She did not have any fevers, cough, nausea, vomiting, diarrhea, or dysuria. PAST MEDICAL HISTORY: None. PAST SURGICAL HISTORY: 1. section x2. 2. Ankle surgery. FAMILY HISTORY: Noncontributory. SOCIAL HISTORY: She lives with her and 2 other children. Denies any alcohol, tobacco, or illicit drug use. She has no exposure to chemicals, dust, asbestos, or tuberculosis. ALLERGIES: NO KNOWN DRUG ALLERGIES. MEDICATIONS: List of her inpatient medications was reviewed. No specific updates were made at this time. REVIEW OF SYSTEMS: General, head, ears, eyes, nose, throat, cardiovascular, respiratory, GI, , musculoskeletal, neurologic, and skin are negative except as mentioned is the HPI. PHYSICAL EXAMINATION: VITAL SIGNS: Afebrile, pulse 102, blood pressure 133/92, respirations 30, and saturation 92% on 2 L nasal cannula. GENERAL: The patient is awake and alert, in no apparent distress. LUNGS: Decent air entry. Crackles are present dependently. There is no prolonged expiratory phase or wheezing appreciated. HEART: Tachycardiac. Regular. ABDOMEN: Soft, nontender, and nondistended. Bowel sounds are positive. MUSCULOSKELETAL: No cyanosis or clubbing. There is no pitting in the bilateral lower extremities. NEUROLOGIC: Grossly nonfocal. LABORATORY DATA: WBC 10.4, hemoglobin 8.8, platelets 359,000. D-dimer 5.23. Basic metabolic profile is otherwise unremarkable. AST and ALT are minimally elevated. Troponin is downtrending to 0.083. BNP 419. Procalcitonin is unremarkable. Urinalysis is negative. IMAGING STUDIES: CTA of the chest demonstrates no evidence of a pulmonary embolism. There are bilateral pleural effusions, and ground-glass infiltrates in the bibasilar regions, which are touch more prominent on the right. Pulmonary artery is small in caliber. Left atrium is dilated. The right atrium and right ventricle appear to have a normal appearance. There is no flattening of the septum. Echocardiogram demonstrates 30% to 35% ejection fraction. Moderate MR is noted. ASSESSMENT: 1. Acute systolic heart failure. 2. Peripartum cardiomyopathy. 3. Acute hypoxic respiratory failure, improving. 4. Bilateral pleural effusion secondary to volume overload state. DISCUSSION AND PLAN: We will continue to diurese the patient until she returns to euvolemia. She is on a magnesium drip and needs frequent monitoring of her reflexes. Once this drip is done, she can be transitioned out of the ICU to the telemetry unit. Pulmonary/Critical Care will continue to follow along in this location. We will wean oxygen away as tolerated. 70 minutes have been devoted to this patient in various activities. I personally reviewed all imaging studies and laboratory data noted within this document. For fifty percent of this time, I was interacting with the patient at the bedside or coordinating care with the care team. For the remainder of the time I was immediately available to the patient in the hospital unit. Job ID: [id number] [facility]
--- NOTE | 2018-10-21 13:43 | PDOC.EVN ---
Event Note - Event Note Event Note: Patient started to have a headache again, nurse recently gave tylenol and pt says it is starting to help. She notes headache is caused by coughing. No vision changes, abdominal pain. DTRs 2/. Mag check 6.8. Plan to d/c mag @ 2145. Cardiology spoke with pt today about not . Addendum - Attending - Attending Attestation Date/Time: 10/21/18 8631 I personally evaluated the patient and discussed the management with Dr. Wyatt. I agree with the History, Examination, Assessment and Plan documented above with any addition or exceptions noted below. Discussed patient with OB hospitalist on today, Dr. Scott. Will plan on decreasing mag to 1/hr and repeat check in 4 hours. D/c mag at 24h.
[2018-10-21] MEDS ORDERED: Magnesium Sulfate 20 gm/500 ml 20 GM/500 ML BAG IVPB SCH (16:08)
--- NOTE | 2018-10-21 18:31 | PDOC.EVN ---
Event Note - Event Note Event Note: Note from check @ 1700 Patient doing well. Denies headache, vision changes, abdominal pain. Sitting up in chair comfortably. DTR 2/4. Patient has no complaints or questions at this time.
[2018-10-22 06:10] LABS: #Eosinphils 0.3 thou/uL (0.0-0.7); #Lymphocytes 1.7 thou/uL (1.20-3.40); #Neutrophils 9.4 thou/uL (1.40-6.50); %Basophils 0.4 % (0.0-1.0); %Eosinophils 2.5 % (0.0-10.0); %Lymphocytes 13.5 % (21.0-51.0); %Monocytes 7.9 % (0.0-10.0); %Neutrophils 75.7 % (42.0-75.0); Hemoglobin 10.1 g/dL (12.0-16.0); Mean Corpuscular HGB CONC 31.6 g/dL (32.0-36.0); Mean Corpuscular Hemoglobin 25.5 pg (27.0-31.0); Mean Corpuscular Volume 80.8 fL (78.0-98.0); Mean Platelet Volume 5.9 fL (7.4-10.4); Platelet Count 512 thou/uL (130-400); RBC Distribution Width 13.9 % (11.5-14.5); Red Blood Cell (RBC) Count 3.96 mill/uL (4.20-5.40); White Blood Cell (WBC) Count 12.4 thou/uL (4.8-10.8)
[2018-10-22 06:24] LABS: Anion Gap 13 mmol/L (10-20); BUN (Urea Nitrogen) 11 mg/dL (7.0-18.7); Calc. Creatinine Clearance 193 mL/min (70-130); Carbon Dioxide 23 mmol/L (22-29); Chloride 105 mmol/L (98-107); Estimated GFR-MDRD Greater than 90; Glucose 102 mg/dL (70-105); Potassium 3.9 mmol/L (3.5-5.1); Sodium 137 mmol/L (136-145)
[2018-10-22 06:27] LABS: ALT (SGPT) 45 U/L (8-55); AST (SGOT) 23 U/L (5-34); Albumin 3.5 g/dL (3.5-5.0); Alkaline Phosphatase 91 U/L (40-150); Bilirubin, Direct 0.2 mg/dL (0.1-0.3); Bilirubin, Total 0.4 mg/dL (0.2-1.2); Protein, Total 7.2 g/dL (6.0-8.3)
--- NOTE | 2018-10-22 06:35 | PDOC.FM ---
- Subjective Subjective: Mrs. Rodriguez notes that she is feeling better and glad she is out of CCU so she can see her baby. العراقي out, ambulating to bathroom w/o SOB. Reports continued orthopnea but is improving. Cough continues intermittently, will cause headaches. Denies headache, abdominal pain, vision changes. - Objective MAR Reviewed: Yes Vital Signs & Weight: Vital Signs (12 hours) Temp Pulse Resp BP Pulse Ox 10/22/18 04:00 98.1 F 96 18 135/87 95 10/22/18 00:00 96 10/21/18 23:59 98.6 F 96 18 138/74 95 10/21/18 23:00 95 10/21/18 22:00 98.3 F 10/21/18 20:00 101.0 F H 98 Weight Weight 110.903 kg Most Recent Monitor Data Heart Rate from ECG 102 NIBP 134/95 NIBP BP-Mean 108 Respiration from ECG 25 SpO2 96 I&O: 10/20/18 10/21/18 10/22/18 06:59 06:59 06:59 Intake Total 1788 2137 Output Total 3607 1445 Balance -1817 -8897 Result Diagrams: 10/22/18 05:43 10/22/18 05:43 Phys Exam - Physical Examination Constitutional: NAD Respiratory: clear to auscultation bilateral Cardiovascular: RRR, no significant murmur Gastrointestinal: soft, no distention, positive bowel sounds Musculoskeletal: no edema Neurological: non-focal Psychiatric: normal affect Skin: no rash, normal turgor, cap refill <2 seconds Dx/Plan (1) Peripartum cardiomyopathy, 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 PP cardiomyopathy - CXR showed patchy infiltrate @ lung bases - CTA showed small b/l pleural effusion. R lung base opacification, no PE - Echo showed EF 30-35% - Diuresing well with PO lasix 20mg. I/O balance of -2500. Continued orthopnea. Will continue diuresis. - Cardiology consulted, appreciate recommendations. On coreg and entresto. Possible life vest at discharge. - not encouraged. - HF team on the case Pre-eclampsia with severe features - noted to have high BPs day before and of delivery. No other hx of HTN. - U prot/cr ratio 1. - s/p magenesium for 24 hrs. - BPs stable this am. Yesterday had some BPs of 160s-170 systolic. Patient notes asymptomatic at that time, she was upset when those occurred. Diet: Regular Ppx: Lovenox Addendum - Attending - Attending Attestation Date/Time: 10/22/18 2593 I personally evaluated the patient and discussed the management with Dr. Wyatt and team. I agree with and repeated the History, Examination, Assessment and Plan documented above with any addition or exceptions noted below. Clear lungs this AM but complaining of worse cough, and now with fever x 1. Will repeat CXR and reexamine for source.
[2018-10-22] MEDS: Sacubitril 24.5 MG/Valsartan 25.5 MG TABLET PO SCH ×2 (08:52→21:09)
[2018-10-22] MEDS: Furosemide 20 MG TAB PO SCH (08:52)
[2018-10-22] MEDS: Carvedilol 3.125 MG TAB PO SCH (08:52)
[2018-10-22] MEDS: Enoxaparin Sodium 40 MG/0.4 ML SYRINGE SC SCH (08:52)
[2018-10-22] MEDS ORDERED: Carvedilol 3.125 MG TAB PO SCH (12:20)
[2018-10-22] MEDS ORDERED: Carvedilol 6.25 MG TAB PO SCH (12:30)
--- NOTE | 2018-10-22 12:48 | PRG ---
DATE OF SERVICE: 10/22/2018 SERVICE: Pulmonary Medicine. INTERVAL HISTORY: The patient is doing fine from respiratory standpoint. Denies any current shortness of breath or chest discomfort. She has no cough. Otherwise, there has been no interval change to her condition. PHYSICAL EXAMINATION: VITAL SIGNS: Afebrile, pulse 112, blood pressure 134/85, respirations 22, and saturation 96% on room air. GENERAL: The patient is awake and alert, in no apparent distress. LUNGS: Excellent air entry. There are minimal crackles dependently. No wheezing or rhonchi are present. There is no prolonged expiratory phase. HEART: Tachycardiac. Regular. ABDOMEN: Soft, nontender, and nondistended. Bowel sounds are positive. MUSCULOSKELETAL: No cyanosis or clubbing. There is 1+ pitting in the right lower extremity and trace pitting in the left lower extremity. GENITOURINARY: No العراقي catheter. NEUROLOGIC: Grossly nonfocal. LABORATORY DATA: WBC 12.4, hemoglobin 10.1, and platelets 512,000. Basic metabolic profile is completely unremarkable with potassium of 3.9. Magnesium is settling back down. Liver function studies are unremarkable. ASSESSMENT: 1. Acute systolic heart failure. 2. Peripartum cardiomyopathy. 3. Acute hypoxic respiratory failure, resolved. 4. Bilateral pleural effusions secondary to volume overload state, small. PLAN: The patient is actually feeling much better. She does not have any respiratory symptoms attributed to her heart failure. As such, she has no further requirements for inpatient Pulmonary or Critical Care opinion. At this point, we will sign off. Please call with additional questions or concerns through time. Job ID: [id number]
[2018-10-22] MEDS: Carvedilol 6.25 MG TAB PO SCH (17:23)
--- NOTE | 2018-10-22 18:06 | RAD ---
CHEST TWO VIEW 10/22/18 HISTORY: Fever and cough. COMPARISON: Radiograph two days prior. FINDINGS: Marked interval improvement of the lower lobe air space opacities. No pneumothorax. No effusion. IMPRESSION: Marked interval improvement of the lungs. No effusion, pneumothorax or significant air space consolid ation. POS: HOME
[2018-10-23 05:14] LABS: #Basophils 0.1 thou/uL (0.0-0.2); #Eosinphils 0.5 thou/uL (0.0-0.7); #Lymphocytes 2.3 thou/uL (1.20-3.40); #Neutrophils 7.9 thou/uL (1.40-6.50); %Basophils 0.7 % (0.0-1.0); %Eosinophils 3.8 % (0.0-10.0); %Lymphocytes 19.7 % (21.0-51.0); %Monocytes 8.6 % (0.0-10.0); %Neutrophils 67.2 % (42.0-75.0); Hemoglobin 10.1 g/dL (12.0-16.0); Mean Corpuscular HGB CONC 31.7 g/dL (32.0-36.0); Mean Corpuscular Hemoglobin 25.8 pg (27.0-31.0); Mean Corpuscular Volume 81.3 fL (78.0-98.0); Mean Platelet Volume 6.1 fL (7.4-10.4); Platelet Count 487 thou/uL (130-400); White Blood Cell (WBC) Count 11.8 thou/uL (4.8-10.8)
[2018-10-23 05:30] LABS: ALT (SGPT) 41 U/L (8-55); AST (SGOT) 19 U/L (5-34); Albumin 3.3 g/dL (3.5-5.0); Alkaline Phosphatase 79 U/L (40-150); Anion Gap 12 mmol/L (10-20); BUN (Urea Nitrogen) 14 mg/dL (7.0-18.7); Bilirubin, Total 0.4 mg/dL (0.2-1.2); Calc. Creatinine Clearance 173 mL/min (70-130); Calcium 8.7 mg/dL (7.8-10.44); Carbon Dioxide 23 mmol/L (22-29); Chloride 105 mmol/L (98-107); Estimated GFR-MDRD 82; Globulin 3.6 g/dL (2.4-3.5); Glucose 90 mg/dL (70-105); Potassium 4.2 mmol/L (3.5-5.1); Protein, Total 6.9 g/dL (6.0-8.3); Sodium 136 mmol/L (136-145)
[2018-10-23] MEDS: Enoxaparin Sodium 40 MG/0.4 ML SYRINGE SC SCH (08:33)
[2018-10-23] MEDS: Carvedilol 6.25 MG TAB PO SCH (08:34)
[2018-10-23] MEDS: Furosemide 20 MG TAB PO SCH (08:34)
[2018-10-23] MEDS: Sacubitril 24.5 MG/Valsartan 25.5 MG TABLET PO SCH (08:34)
--- NOTE | 2018-10-23 09:13 | PDOC.FM ---
- Subjective Subjective: Ms Rodriguez is sitting in bed and feeling better. States she is walking around and has lost 15lbs since admission. She denies cough or chest pain. Has not been fitted for life vest at this time. - Objective Vital Signs & Weight: Vital Signs (12 hours) Temp Pulse Resp BP BP Pulse Ox 10/23/18 08:34 126/75 10/23/18 07:54 98.2 F 102 H 16 126/75 98 10/23/18 04:00 98.9 F 109 H 18 126/71 97 10/23/18 00:00 99.0 F 106 H 18 123/62 98 Weight Weight 110.903 kg Most Recent Monitor Data Heart Rate from ECG 102 NIBP 134/95 NIBP BP-Mean 108 Respiration from ECG 25 SpO2 96 I&O: 10/22/18 10/23/18 10/24/18 06:59 06:59 06:59 Intake Total 2137 1230 Output Total 4685 900 Balance -9868 330 Result Diagrams: 10/23/18 04:28 10/23/18 04:28 Phys Exam - Physical Examination Constitutional: NAD HEENT: PERRLA, moist MMs Neck: no nodes, no JVD Respiratory: no wheezing, no rales, no rhonchi Cardiovascular: RRR (mild tachycardia), no significant murmur, no rub Gastrointestinal: soft, non-tender Musculoskeletal: no edema, pulses present Neurological: non-focal, normal sensation Psychiatric: normal affect, A&O x 3 Skin: no rash, normal turgor, cap refill <2 seconds Dx/Plan (1) cardiomyopathy Code(s): O90.3 - PERIPARTUM CARDIOMYOPATHY Status: Acute (2) Pre-eclampsia, severe, condition Code(s): O14.15 - SEVERE PRE-ECLAMPSIA, COMPLICATING THE PUERPERIUM Status: Resolved - Plan Plan: 33 yo POD 10 s/p RLTCS admitted for PP Cardiomyopathy. cardiomyopathy - Initially presented in respiratory distress and volume overload with echo showing EF 30-35% - Will continue diuresis with Lasix 20mg daily. Negaive fluid balance and 15lbs down since admission. Did have a fever on 10/21, but resolved with no additional symptoms and an improved CXR. - Cardiology consulted, On coreg and entresto. Awaiting Life vest fitting prior to discharge. - not encouraged. - CHF team following Pre-eclampsia with severe features - Elevated BPs the day before and day of delivery and again upon current admission. No other hx of HTN.. - S/p magenesium for 24 hrs ended 10/21. - BPs recorded stable for the past 48hrs. Patient asymptomatic at that time. Diet/activity: Regular Ppx: Lovenox Dispo: Anticipate discharge in 1-2 days Addendum - Attending - Attending Attestation Date/Time: 10/23/18 2420 I personally evaluated the patient and discussed the management with Dr. Rosales I agree with the History, Examination, Assessment and Plan documented above with any addition or exceptions noted below. 33 yo female s/p RLTCS on 10/13/18 now admitted for peripartum cardiomyopathy and preeclampsia with severe features. HD# 3 POD# 10 Patient reports she is feeling well. No acute change overnight. Denies CP, orthopnea, palpitations, ECKERT, or SOB. Cards following. Pulm has signed off. VS reviewed. Borderline tachycardia. Afebrile. BP stable. Labs and imaging reviewed. NAD, AAO x4 RRR on exam. I/ systolic murmur. CTA bilaterally. No W/C/R Abdomen/fundus NT/ND. Incision healing well. FROM x4. No C/C/E. 1. Peripartum cardiomyopathy with acute HF: Acute events resolved. Cards following. ECHO reviewed. LVEF 30 to 35%. Continue BB, Lasix prn, Entresto. Awaiting life vest. HF clinic outpatient. Cards follow up within 1 to 2 wks post discharge. PCP follow up in 3 to 5 days. Do not recommend further pregnancies due to risk. No BF due to medication risk with . Risk for nursing home CV risk. 2. s/p LTCS: POD#10. Doing well. Incision healing well. Lochia resolved. 3. hx of gHTN now progressed to preeclampsia with severe features: s/p 24 hours mag sulfate for seizure ppx. BP now normotensive. Asymptomatic. 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 4. Fever: Resolved. No evidence of infection. Procal negative. CXR negative. Asymptomatic. Possibly related to medication (mag bolus). 5. DVT ppx: Lovenox and ambulation 6. Contraception: Vasectomy Dispo: Awaiting Life Vest place and ok to d/c to home with close follow up. Gaye
--- NOTE | 2018-10-23 09:19 | PDOC.CTH ---
Cardiology Progress Note - Subjective The pt seen and examined. No overnight events. No cardiac complaints. Her HR tends to elevate with mild exertion, but denied any cardiac complaints. - Objective Vital Signs Temp Pulse Resp BP BP Pulse Ox 10/23/18 08:34 126/75 10/23/18 07:54 98.2 F 102 H 16 126/75 98 10/23/18 04:00 98.9 F 109 H 18 126/71 97 10/23/18 00:00 99.0 F 106 H 18 123/62 98 Weight 244 lb 8 oz 10/22/18 10/23/18 10/24/18 06:59 06:59 06:59 Intake Total 2137 1230 Output Total 4685 900 Balance -2548 330 - Physical Examination General/Neuro: alert & oriented x3 Neck: no JVD present Lungs: CTA Heart: RRR Abdomen: soft Extremities: other: (No edema) - Telemetry Telemetry Rhythm: [id number] - Labs Result Diagrams: 10/23/18 04:28 10/23/18 04:28 Troponin/CKMB CK-MB (CK-2) 1.0 ng/mL (0-6.6) 10/20/18 06:15 Troponin I 0.083 ng/mL (< 0.028) H 10/20/18 12:06 - Assessment/Plan 1. CMY with EF 30-35% - stable with RA; On Coreg 6.25mg BID, Lasix 20mg qd and Entresto 24/25 0.5tab BID; The pt voiced understanding that no breast feeding with those medication and her CV condition; Waiting for LifeVest fitting MAR reviewed * Echo on 10/20/18 showed EF 30-35%, mildly LV size, mildly elevated LA, mod MR , and mild TR. * From Cardiac standpoint, the pt is stable to d/c home after she receives LifeVest. The pt will f/u with Dr Anguiano's office within 2wks. Review of Systems - Review of Systems Constitutional: reports: no symptoms reported EENTM: reports: no symptoms reported Respiratory: reports: no symptoms reported Cardiac (ROS): reports: no symptoms reported ABD/GI: reports: no symptoms reported : reports: no symptoms reported Musculoskeletal: reports: no symptoms reported
[2018-10-23 11:48] VITALS: BP 126/70
[2018-10-23 15:53] VITALS: TEMP 98.3
--- NOTE | 2018-10-26 06:15 | DIS ---
DATE OF ADMISSION: 10/20/2018 DATE OF DISCHARGE: 10/23/2018 RESIDENT: Jennifer Wyatt DO ADMITTING ATTENDING: Ran Sadler MD. DISCHARGE ATTENDING: Eleonora Levi MD. CONSULTS: Cardiology, Pulmonology. PROCEDURES: 10/20/2018, chest x-ray showed mild patchy bilateral infiltrates at lung bases. 10/20/2018, chest/thorax CTA showed small bilateral pleural effusions, mild opacification at the right lung base compatible with edema or pneumonia, no evidence of aortic dissection, leak, rupture, or other complications. 10/20/2018, echocardiogram showed left ventricular size mildly increased, ejection fraction 30% to 35%, left atrium mildly dilated, moderate mitral regurgitation present, mild tricuspid regurgitation. 10/22/2018, chest x-ray showed marked interval improvement of the lungs, no effusion, pneumothorax, or significant airspace consolidation. PRIMARY DIAGNOSES: 1. Peripartum as well as cardiomyopathy. 2. Preeclampsia with severe features. 3. Status post low transverse section. 4. Fever. DISCHARGE MEDICATIONS: 1. Entresto mg, take 0.5 tab p.o. b.i.d., #60. 2. Lasix 20 mg p.o. daily, #30. 3. Carvedilol 6.25 p.o. b.i.d. with meals 30 days, #60. 4. Ibuprofen 800 mg p.o. t.i.d. p.r.n. resumed. 5. [place] 5/325 one tab p.o. q.6 hours p.r.n. resumed. HISTORY OF PRESENT ILLNESS: 33-year-old female postop day #7 status post repeat low transverse , presented with chief complaint of shortness of breath. The day prior she noticed rattling sounds with breathing and endorsed orthopnea symptoms the day prior to admission. Additionally, had shortness of breath with exertion and a dry cough. The patient denied chest pain, fever, headache, abdominal pain, vision changes, or swelling. The patient denied any complications and was recovering well at home with incision healing well. her . Chest x-ray and CTA showed bilateral pleural effusions. Indeterminate troponins were trended. BNP was 419. EKG showed sinus tachycardia. Otherwise, vital signs stable. An echocardiogram was ordered and the patient was started on IV Lasix. Cardiology was consulted for probable peripartum cardiomyopathy. Additionally, there was concern for the patient's elevated blood pressures, 150s systolic noted in the ED. At time of admission, the patient had no symptoms, LFTs were minimally elevated, creatinine 0.74 and platelets normal. Workup for pre-e was ordered. The patient was admitted to telemetry. The patient diuresed well on Lasix. However, that evening, the patient began to have a sudden onset severe headache, urine protein-creatinine ratio greater than 1. The patient was diagnosed with preeclampsia with severe features and was moved to the CCU in order to receive both IV magnesium drip as well as cardiac monitoring. The patient was on magnesium for 24 hours and it was then discontinued. The patient was started on heart failure medications per Cardiology recommendations. Pulmonology began to see the patient while she was in the CCU. The patient's symptoms began to improve with medical management. At time of discharge, the patient had significant urinary output and weight loss. She was able to ambulate without dyspnea. Cardiology recommended LifeVest and additionally the patient will follow up in heart failure clinic in the outpatient setting. discouraged due to condition and new medications. DISPOSITION: Stable. DISCHARGE INSTRUCTIONS: 1. Location: Home. 2. Diet: Fluid restriction. 3. Activity: Cardiopulmonary limits. 4. Follow up in 3 weeks with direct marketing specialist, Dr. Martinez. Follow up with primary care doctor Dr. Suazo on October 28, 2018. Follow up with heart failure clinic and outpatient cardiac rehab as well. Job ID: [id number]
== END 2018-10-23 16:10 | disposition home or self-care (01) | DRG 776 ==
LOC: SCSER 05:50 → 2SW 09:03 → OBSVTOIN 09:03 → EEVIPCON 09:03 → CCU 20:57 → 2SE 10-21 23:20
PROVIDERS: ADMIT Family Medicine; ATTEND Family Medicine
DX: O90.3 Peripartum cardiomyopathy (principal); I50.21 Acute systolic (congestive) heart failure; J96.01 Acute respiratory failure with hypoxia; O99.53 Diseases of the respiratory system complicating the puerperium; O99.43 Diseases of the circulatory system complicating the puerperium; Z82.49 Family history of ischemic heart disease and other diseases of the circulatory system; O14.15 Severe pre-eclampsia, complicating the puerperium
CPT/HCPCS: 36415; 71046; 71275; 80048; 80053; 80076; 81003; 81015; 82553; 82570; 83690; 83735; 83880; 84145; 84156; 84484; 85025; 85379; 93005; 93306; 93798; 96360; 96361; J1650; J1940; J3475

== ENCOUNTER 2019-08-29 10:22 | Emergency (ER) | payer BC ==
[~2019-08-29 10:22] MED LIST: Iopamidol 370 76% 100 ML VIAL ONE
[2019-08-29] MEDS ORDERED: Famotidine 20 MG TAB ONE (11:04)
[2019-08-29 11:09] LABS: #Basophils 0.1 thou/uL (0.0-0.2); #Eosinphils 0.1 thou/uL (0.0-0.7); #Lymphocytes 1.6 thou/uL (1.20-3.40); #Monocytes 0.7 thou/uL (0.11-0.59); #Neutrophils 12.9 thou/uL (1.40-6.50); %Basophils 0.6 % (0.0-1.0); %Eosinophils 0.4 % (0.0-10.0); %Lymphocytes 10.2 % (21.0-51.0); %Monocytes 4.4 % (0.0-10.0); %Neutrophils 84.5 % (42.0-75.0); Hemoglobin 12.6 g/dL (12.0-16.0); Mean Corpuscular HGB CONC 32.6 g/dL (32.0-36.0); Mean Corpuscular Hemoglobin 26.2 pg (27.0-31.0); Mean Corpuscular Volume 80.5 fL (78.0-98.0); Mean Platelet Volume 7.1 fL (7.4-10.4); Platelet Count 363 thou/uL (130-400); RBC Distribution Width 13.1 % (11.5-14.5); Red Blood Cell (RBC) Count 4.82 mill/uL (4.20-5.40); White Blood Cell (WBC) Count 15.3 thou/uL (4.8-10.8)
[2019-08-29 11:10] LABS: BHCG - Serum Negative (NEGATIVE); Pregs Control Background? CLEAR/WHITE (CLR/WHITE); Pregs Control Bar Appear? YES (CONTROL BAR)
[2019-08-29 11:20] LABS: ALT (SGPT) 21 U/L (8-55); AST (SGOT) 13 U/L (5-34); Alkaline Phosphatase 79 U/L (40-110); Anion Gap 14 mmol/L (10-20); BUN (Urea Nitrogen) 12 mg/dL (7.0-18.7); Bilirubin, Total 0.4 mg/dL (0.2-1.2); Calc. Creatinine Clearance 0 mL/min (70-130); Calcium 9.2 mg/dL (7.8-10.44); Carbon Dioxide 21 mmol/L (22-29); Chloride 105 mmol/L (98-107); Estimated GFR-MDRD Greater than 90; Globulin 3.6 g/dL (2.4-3.5); Glucose 112 mg/dL (70-105); Lipase 22 U/L (8-78); Potassium 3.9 mmol/L (3.5-5.1); Protein, Total 7.6 g/dL (6.0-8.3); Sodium 136 mmol/L (136-145)
--- NOTE | 2019-08-29 11:21 | RAD ---
RADIOGRAPH CHEST 1 VIEW: DATE: 08/29/2019 HISTORY: 34-year-old female with chest pain FINDINGS: The visualized lung agee are clear. The cardiomediastinal silhouette and hilar shadows are normal. The lateral costophrenic angles are sharp. There is no pneumothorax. IMPRESSION: Negative.
--- NOTE | 2019-08-29 12:36 | CT ---
CT ABDOMEN AND PELVIS WITH CONTRAST: Date: 08/29/19 COMPARISON: None. HISTORY: Right lower quadrant abdominal pain. TECHNIQUE: Multiple contiguous axial images were obtained in a CT of the abdomen and pelvis with contrast. Sagit merary and coronal reformats were performed. FINDINGS: High density material is seen in the dependent aspect of the gallbladder which likely represents gall stones. The liver, right kidney, adrenal glands, spleen, and pancreas are unremarkable. A subcentimet er hypodensity in the left kidney is too small to definitely characterize, but likely represents a cy st. There are scattered diverticula in the colon. The small bowel and appendix are unremarkable. The repr oductive organs are unremarkable. No abdominal or pelvic lymphadenopathy are seen. Degenerative changes are seen in the spine. The abdo doug wall soft tissues and visualized inferior thorax unremarkable. IMPRESSION: 1. Diverticulosis. 2. Likely small left renal cyst. 3. High density in gallbladder likely represents gallstones. POS: TPC
== END 2019-08-29 13:12 | disposition home or self-care (01) ==
LOC: SCSER 10:22
DX: K80.20 Calculus of gallbladder without cholecystitis without obstruction (principal); K57.90 Diverticulosis of intestine, part unspecified, without perforation or abscess without bleeding; N28.1 Cyst of kidney, acquired; R11.2 Nausea with vomiting, unspecified; R19.7 Diarrhea, unspecified; F41.9 Anxiety disorder, unspecified; Z79.899 Other long term (current) drug therapy
CPT/HCPCS: 71045; 74177; 80053; 83690; 83880; 84484; 84703; 85025; 87804; 93005; 96360; J0500; Q9967

== ENCOUNTER 2019-09-13 07:58 | Outpatient (CLI) | payer BC ==
[2019-09-13 14:24] LABS: #Basophils 0.1 thou/uL (0.0-0.2); #Eosinphils 0.1 thou/uL (0.0-0.7); #Lymphocytes 2.5 thou/uL (1.20-3.40); #Monocytes 0.8 thou/uL (0.11-0.59); #Neutrophils 5.8 thou/uL (1.40-6.50); %Basophils 0.6 % (0.0-1.0); %Eosinophils 1.6 % (0.0-10.0); %Monocytes 8.2 % (0.0-10.0); %Neutrophils 62.6 % (42.0-75.0); Hemoglobin 12.5 g/dL (12.0-16.0); Mean Corpuscular HGB CONC 32.1 g/dL (32.0-36.0); Mean Corpuscular Volume 84.1 fL (78.0-98.0); Mean Platelet Volume 7.5 fL (7.4-10.4); Platelet Count 327 thou/uL (130-400); RBC Distribution Width 12.9 % (11.5-14.5); Red Blood Cell (RBC) Count 4.64 mill/uL (4.20-5.40); White Blood Cell (WBC) Count 9.2 thou/uL (4.8-10.8)
[2019-09-13 14:48] LABS: ALT (SGPT) 20 U/L (8-55); AST (SGOT) 11 U/L (5-34); Alkaline Phosphatase 75 U/L (40-110); Anion Gap 9 mmol/L (10-20); BUN (Urea Nitrogen) 9 mg/dL (7.0-18.7); Bilirubin, Direct 0.2 mg/dL (0.1-0.3); Bilirubin, Total 0.4 mg/dL (0.2-1.2); Calc. Creatinine Clearance 0 mL/min (70-130); Carbon Dioxide 26 mmol/L (22-29); Chloride 107 mmol/L (98-107); Estimated GFR-MDRD Greater than 90; Globulin 3.6 g/dL (2.4-3.5); Glucose 82 mg/dL (70-105); Potassium 3.6 mmol/L (3.5-5.1); Protein, Total 7.6 g/dL (6.0-8.3); Sodium 138 mmol/L (136-145)
[2019-09-13 14:51] LABS: BHCG - Serum Negative (NEGATIVE); Pregs Control Background? CLEAR/WHITE (CLR/WHITE); Pregs Control Bar Appear? YES (CONTROL BAR)
== END 2019-09-13 07:59 | disposition home or self-care (01) ==
LOC: LABBT 07:58
PROVIDERS: ATTEND Surgery
DX: Z01.818 Encounter for other preprocedural examination (principal); K80.20 Calculus of gallbladder without cholecystitis without obstruction; I42.9 Cardiomyopathy, unspecified
CPT/HCPCS: 80053; 80076; 84703; 85025; 93005; 93010

== ENCOUNTER 2019-09-19 08:40 | Inpatient (IN) | payer BC ==
[2019-09-13 12:07] VITALS: BMI 39.6
[2019-09-19] MEDS ORDERED: Sodium Chloride 0.9% 100 ML ONE (10:00)
[2019-09-19] MEDS ORDERED: cefOXitin 2 GM VIAL ONE (10:00)
[2019-09-19] MEDS ORDERED: Bupivacaine 0.25% HCL 30 ML VIAL ONE (10:42)
[2019-09-19] MEDS ORDERED: Midazolam HCl 2 mg/2 ml Vial ONE (10:51)
[2019-09-19] MEDS ORDERED: Fentanyl 100 MCG/2 ML VIAL ONE ×5 (10:53→15:46)
[2019-09-19] MEDS ORDERED: Albuterol Sulfate HFA (OR ONLY) ONE (11:44)
[2019-09-19] MEDS ORDERED: Ondansetron HCl/PF 4 MG/2 ML Vial IVP PRN (12:50)
[2019-09-19] MEDS ORDERED: Promethazine HCl 25 MG/ML VIAL SLOW IVP PRN (12:50)
[2019-09-19] MEDS ORDERED: Promethazine HCl 25 MG/ML VIAL IM PRN ×2 (12:50→13:00)
[2019-09-19] MEDS ORDERED: Meperidine HCl/PF 25 MG/ML VIAL SLOW IVP PRN (12:50)
[2019-09-19] MEDS ORDERED: Dextrose 50% Abboject 50 ML SYRINGE SLOW IVP PRN (13:00)
[2019-09-19] MEDS ORDERED: HYDROcodone/Acetaminophen 10/325 mg Tablet PO PRN ×2 (13:00)
[2019-09-19] MEDS ORDERED: Ondansetron PF 4 MG/2 ML Vial IVP PRN (13:00)
[2019-09-19] MEDS ORDERED: hydrALAZINE 20 MG/ML VIAL SLOW IVP PRN (13:00)
[2019-09-19] MEDS ORDERED: Morphine 4 MG/ML VIAL SLOW IVP PRN (13:00)
[2019-09-19] MEDS ORDERED: Calcium Carbonate 500 MG ChewTAB PO PRN (13:00)
[2019-09-19] MEDS ORDERED: Dextrose 5% in Water 1,000 ML IV PRN (13:00)
[2019-09-19] MEDS ORDERED: Mag-Al 1200 mg/1200 mg/30 ML UDCUP PO PRN (13:00)
[2019-09-19] MEDS ORDERED: Morphine 2 MG/ML SYRINGE SLOW IVP PRN (13:00)
[2019-09-19] MEDS ORDERED: Glycopyrrolate 0.2 MG/ML 5 ML SYRINGE ONE (14:37)
[2019-09-19] MEDS ORDERED: PROPOFOL 200 MG/20 ML VIAL ONE (14:37)
[2019-09-19] MEDS ORDERED: Ondansetron PF 4 MG/2 ML Vial ONE (14:37)
[2019-09-19] MEDS ORDERED: Rocuronium Bromide 10 MG/ML (10ML VIAL) ONE (14:37)
[2019-09-19] MEDS ORDERED: Ketorolac Tromethamine 30 MG/ML VIAL ONE (14:37)
[2019-09-19] MEDS ORDERED: Metoclopramide HCl 10 MG/2 ML VIAL ONE (14:37)
[2019-09-19] MEDS ORDERED: Dexamethasone 20 MG/5 ML VIAL ONE (14:37)
[2019-09-19] MEDS ORDERED: Lidocaine 1% PF 5 ML VIAL ONE (14:37)
[2019-09-19] MEDS ORDERED: Succinylcholine Chloride 20 MG/ML 10 ml SYRINGE FS ONE (14:37)
[2019-09-19] MEDS ORDERED: Meperidine HCl/PF 25 MG/ML VIAL ONE (15:57)
[2019-09-19] MEDS ORDERED: cefOXitin Sodium/Dextrose,Iso 2 GM in Premix Bag 1 BAG IVPB SCH (18:00)
[2019-09-19] MEDS: Ketorolac Tromethamine 30 MG/ML VIAL IVP SCH (18:17)
[2019-09-19] MEDS: Famotidine 20 MG TAB PO SCH (20:28)
[2019-09-19] MEDS: FLUoxetine HCl 20 MG CAP PO SCH (20:28)
[2019-09-19] MEDS: Carvedilol 3.125 MG TAB PO SCH (20:30)
[2019-09-19] MEDS: cefOXitin Sodium/Dextrose,Iso 2 GM in Premix Bag 1 BAG IVPB SCH (20:31)
[2019-09-19] MEDS: D5 1/2 NS w/20 mEq KCL 1,000 ML IV SCH (23:05)
[2019-09-19] MEDS: Famotidine/PF 20 mg/2ml Vial SLOW IVP SCH (23:05)
[2019-09-20] MEDS: Cepastat Lozenges 1 LOZ PO PRN ×3 (00:12→16:04)
[2019-09-20] MEDS: Ketorolac Tromethamine 30 MG/ML VIAL IVP SCH ×4 (00:12→18:49)
[2019-09-20] MEDS: cefOXitin Sodium/Dextrose,Iso 2 GM in Premix Bag 1 BAG IVPB SCH ×3 (05:57→21:31)
[2019-09-20] MEDS: D5 1/2 NS w/20 mEq KCL 1,000 ML IV SCH ×2 (06:04→21:39)
[2019-09-20 06:05] LABS: #Lymphocytes 1.3 thou/uL (1.20-3.40); #Monocytes 0.8 thou/uL (0.11-0.59); #Neutrophils 11.2 thou/uL (1.40-6.50); %Lymphocytes 9.5 % (21.0-51.0); %Monocytes 6.1 % (0.0-10.0); %Neutrophils 84.3 % (42.0-75.0); Hemoglobin 10.2 g/dL (12.0-16.0); Mean Corpuscular HGB CONC 32.4 g/dL (32.0-36.0); Mean Corpuscular Hemoglobin 27.2 pg (27.0-31.0); Mean Platelet Volume 7.1 fL (7.4-10.4); Platelet Count 279 thou/uL (130-400); RBC Distribution Width 12.8 % (11.5-14.5); Red Blood Cell (RBC) Count 3.76 mill/uL (4.20-5.40); White Blood Cell (WBC) Count 13.2 thou/uL (4.8-10.8)
[2019-09-20 06:31] LABS: ALT (SGPT) 76 U/L (8-55); AST (SGOT) 56 U/L (5-34); Albumin 3.3 g/dL (3.5-5.0); Alkaline Phosphatase 61 U/L (40-110); Anion Gap 6 mmol/L (10-20); BUN (Urea Nitrogen) 5 mg/dL (7.0-18.7); Bilirubin, Total 0.4 mg/dL (0.2-1.2); Calc. Creatinine Clearance 191 mL/min (70-130); Calcium 8.4 mg/dL (7.8-10.44); Carbon Dioxide 28 mmol/L (22-29); Chloride 106 mmol/L (98-107); Estimated GFR-MDRD Greater than 90; Globulin 2.9 g/dL (2.4-3.5); Glucose 133 mg/dL (70-105); Lipase 17 U/L (8-78); Protein, Total 6.2 g/dL (6.0-8.3); Sodium 136 mmol/L (136-145)
--- NOTE | 2019-09-20 08:09 | OP ---
DATE OF PROCEDURE: 09/19/2019 PREOPERATIVE DIAGNOSIS: Symptomatic cholelithiasis. PROCEDURES PERFORMED: Laparoscopic cholecystectomy, exploratory laparotomy, repair of bile duct perforation. INDICATIONS: This is a 34-year-old female, who has been having episodic right upper quadrant pain. Ultrasound showed cholelithiasis. FINDINGS: Small caliber cystic duct. She had a very short cystic artery and once it was divided, the clip came off and we had bleeding that could not be controlled with either Endoloop or clip, so I had to control it with a suture. The suture, however, was causing a partial obstruction of the common duct, requiring exploratory laparotomy to delineate anatomy and repair. DESCRIPTION OF PROCEDURE: After informed consent was obtained, the patient was taken to the operating room and given general endotracheal anesthesia. She was placed in the supine position. Her abdomen was prepped and draped in usual fashion. Local anesthesia infiltrated subcutaneously and deep, and a subumbilical incision was performed. Subcu divided sharply. The fascia was grasped and 2 stay sutures of 0 Vicryl placed in each side of midline. Midline incised. Digital palpation revealed no local adhesions. A blunt 12 mm trocar inserted. Pneumoperitoneum was created to a pressure of 15 mmHg. A 0-degree laparoscope inserted under direct vision. Three 5 mm ports were placed subcostally. The gallbladder was grasped and advanced superiorly. The peritoneum opened and the cystic artery and cystic duct were dissected out. The cystic artery was just a couple of millimeters, so I could not really put 3 clips on it, I had to put 2 clips on it. Divided the cystic duct and then divided the cystic artery and then clip fell off. I had fairly brisk bleeding. I was able to retrieve it. An attempt was made to place a clip, but I could not clip it, nor because of its size, I could not put an Endoloop on it, so I was able to control it utilizing a 2-0 silk suture tied intracorporeally. However, once that was tied down, I could see a small amount of bile leaking and I could not be sure where the common duct was, so I elected to open. A right subcostal incision was performed. Subcu divided sharply. Retraction achieved with a Bookwalter retractor. The suture was removed. First of all, I opened up the peritoneum and could expose this common bile duct. Common bile duct was being partially occluded by this [id number] to control the bleeding. That was removed and then I was able to be more precise with a 4-0 PDS RB-1 suture to control the bleeding, but there was a tiny needle puncture into the common duct that was leaking a little bit of bile, so this was closed with a 4-0 PDS [id number]. The wound was thoroughly irrigated and hemostasis was assured. A drain was placed and brought out through the lateral-most trocar site. The posterior fascia was closed with the running #1 PDS. Anterior fascia closed with a running #1 PDS. Subcu irrigated and hemostasis assured. Skin closed with skin fortino. The umbilical fascia was closed with 2-0 Vicryl suture and skin fortino. Sterile bandage was applied. The patient tolerated the procedure well and transferred to Recovery in good condition. Job ID: [id number]
[2019-09-20] MEDS ORDERED: Enoxaparin Sodium 40 MG/0.4 ML SYRINGE SC SCH (09:00)
[2019-09-20] MEDS ORDERED: Furosemide 20 MG TAB PO SCH (09:00)
[2019-09-20] MEDS: Carvedilol 3.125 MG TAB PO SCH ×2 (10:16→19:23)
[2019-09-20] MEDS: Famotidine 20 MG TAB PO SCH ×2 (10:17→21:31)
[2019-09-20] MEDS: Famotidine/PF 20 mg/2ml Vial SLOW IVP SCH ×2 (10:18→21:29)
--- NOTE | 2019-09-20 12:33 | PRG ---
DATE OF SERVICE: 09/20/2019 SUBJECTIVE: She complains of some pain in the right upper quadrant, but is doing well otherwise. She is tolerating a regular diet, passing flatus. OBJECTIVE: VITAL SIGNS: Her temperature is 98.1, pulse 72, blood pressure 102/56. GENERAL: She looks good. She is awake, alert. She has had 50 mL out of her [place]. LABORATORY DATA: Her white count is 13.2, H and H 10 and 31, platelet count 279. Her bilirubin is 0.4, alkaline phosphatase 61, AST was 56, ALT is 63, lipase is 17. ASSESSMENT: Doing well after open cholecystectomy. PLAN: Continue ambulation, probably discharge in the morning. Job ID: [id number]
[2019-09-20] MEDS: FLUoxetine HCl 20 MG CAP PO SCH (21:30)
[2019-09-21] MEDS: Ketorolac Tromethamine 30 MG/ML VIAL IVP SCH (00:31)
[2019-09-21 01:19] VITALS: BP 106/57; TEMP 98
[2019-09-21] MEDS ORDERED: Ketorolac Tromethamine 30 MG/ML VIAL ONE (06:56)
--- NOTE | 2019-09-21 13:24 | DIS ---
DATE OF ADMISSION: 09/19/2019 DATE OF DISCHARGE: 09/21/2019 DISCHARGE DIAGNOSES: 1. Symptomatic cholelithiasis. 2. Intraoperative bleeding. 3. Bile duct puncture. PROCEDURES DURING ADMISSION: Laparoscopic cholecystectomy converted to open exploratory laparotomy, over-sew of bleeding vessel and repair of puncture of bile duct. HOSPITAL COURSE: The patient was admitted, taken to the operating room, where she underwent a laparoscopic cholecystectomy. She had a loss of control of the cystic artery. This was controlled with an intraoperative suture. There was some bile-tinged fluid seen. She was converted to an open procedure. She was found to have a suture going through the bile duct. This was removed. The artery was individually ligated and the bile duct was repaired. Postoperatively, she did well. She has never had any bilious drainage. Her LFTs were fine. Her pain is controlled on p.o. medications. She is tolerating a regular diet. She is discharged home on hydrocodone and Zofran. She will follow up with me in 2 weeks. Job ID: [id number]
--- NOTE | 2019-09-22 04:27 | PQF ---
[employer] Grievance Manager Crystal Reports Winform Viewer SHARAGABBYJAVIER TILLEY JR, MD [id number] [address] [place] [address] [id number] CLINICAL DOCUMENTATION CLARIFICATION FORM: POST DISCHARGE Addendum to original discharge summary date: ____ Late entry note date: __ DATE: 09/22/19 ATTN: Javier Clark Please exercise your independent, professional judgment in responding to the clarification form. Clinical indicators are provided on the bottom of this form for your review Please check appropriate box(s): In the description of the operative procedure a Bile duct puncture was noted by the surgeon. If possible would you please further clarify if this was: [ ] Incidental occurrence inherent in the surgical procedure [x ] Complication of the procedure [ ] Other please specify [ Unable to determine For continuity of documentation, please document condition throughout progress notes and discharge summary. Thank You. CLINICAL INDICATORS - SIGNS / SYMPTOMS / LABS DS pg.1- Bile duct puncture OP Report 09/19 pg.1- repair of bile duct perforation OP Report 09/19 pg.1- very short cystic artery and once it was divided, the clip came off and we had bleeding that could not be controlled with either endoloop or clip OP Report 09/19 pg.1-the suture however causing a partial obstruction of of common bile duct OP Report 09/19 pg.2- there was tiny needle puncture into the common duct that was leaking a little bit of bile RISK FACTORS Symptomatic cholelithiasis- OP Report 12 pg.1- DS pg.1- intraoperative bleeding TREATMENTS: Laparoscopic cholecystectomy converted to open- DS pg.1 Exploratory laparotomy, repair of bile duct perforation IV Fluids- MAR (This form is maintained as a part of the permanent medical record) 2014 [employer]. All Rights Reserved Jamie [email or web address] [not provided] [email or web address]
== END 2019-09-21 13:42 | disposition home or self-care (01) | DRG 409 ==
LOC: SDC 08:40 → 3SE 17:52
PROVIDERS: ADMIT Surgery; ATTEND Surgery
PROC: 0FQ90ZZ Repair Common Bile Duct, Open Approach (ICD-10-PCS; principal; 2019-09-19)
PROC: 0FT40ZZ Resection of Gallbladder, Open Approach (ICD-10-PCS; 2019-09-19)
PROC: 0FJ44ZZ Inspection of Gallbladder, Percutaneous Endoscopic Approach (ICD-10-PCS; 2019-09-19)
DX: K80.20 Calculus of gallbladder without cholecystitis without obstruction (principal); I42.8 Other cardiomyopathies; K91.71 Accidental puncture and laceration of a digestive system organ or structure during a digestive system procedure; Y83.8 Other surgical procedures as the cause of abnormal reaction of the patient, or of later complication, without mention of misadventure at the time of the procedure; F41.9 Anxiety disorder, unspecified; F41.0 Panic disorder [episodic paroxysmal anxiety]
CPT/HCPCS: 36415; 80053; 83690; 85025; 88304; J0131; J0694; J1100; J1650; J1885; J2001; J2175; J2250; J2270; J2405; J2704; J2765; J3010; J3490; S0020